=== PATIENT | male | born 1940 | race African-American/Black ===

== ENCOUNTER 2018-12-13 12:56 | Inpatient (IN) ==
[2018-12-13] MEDS ORDERED: LORazepam 2 MG/1 ML VIAL IV STA (13:09)
[2018-12-13 13:36] LABS: Basophils % 0.5 % (0.0-0.8); Eosinophils # 0.2 10*3/uL (0.0-0.87); Eosinophils % 2.8 % (0.00-10.9); Hematocrit 22.6 VOL% (42.0-52.0); Immature Granulocytes % 0.5 %; Immature Granulocytes Absolute 0.03 #; Lymphocytes % 17.1 % (21.2-54.2); Mean Corpuscular Volume 96.2 FL (87-102); Monocytes % 9.7 % (1.7-12.7); Neutrophils % 69.4 % (38.7-73.9); Platelet Count 297 T/CUMM (130-400); Red Blood Count 2.35 MC/CUMM (3.8-5.5); Red Cell Distribution Width 15.6 % (9.3-17.3); White Blood Count 5.8 T/CUMM (4-12)
[2018-12-13 14:01] LABS: Alanine Aminotransferase 15 U/L (16-61); Albumin 3.4 G/DL (3.4-5.0); Alkaline Phosphatase 71 U/L (45-117); Aspartate Amino Transferase 14 U/L (0-37); Bilirubin,Total < 0.39 MG/DL (0.2-1.0); Blood Urea Nitrogen 39 MG/DL (7-18); Calcium 8.4 MG/DL (8.5-10.1); Free T4 (Free Thyroxine) 1.08 NG/DL (0.76-1.46); Glucose 154 MG/DL (74-106); Osmolality,Calculated 281.1 MOS/KG (273-304); Total Protein 6.6 G/DL (6.4-8.3); Troponin I < 0.015 NG/ML (0.00-0.045)
[2018-12-13 15:02] LABS: INR 0.9; PT Patient Result 10.2 SECS; Partial Thromboplastin Time 27.6 SECS (0-40)
[2018-12-13] MEDS ORDERED: traMADol 50 MG TABLET PO PRN (16:22)
[2018-12-13] MEDS ORDERED: ONDANSETRON 4 MG/2 ML VIAL IV PRN (16:51)
[2018-12-13] MEDS ORDERED: DEXTROSE 50% 25 GM/50 ML SYRINGE IV PRN (16:55)
[2018-12-13] MEDS ORDERED: GLUCAGON 1 MG VIAL IM PRN (16:55)
[2018-12-13] MEDS ORDERED: SODIUM CHLORIDE 0.9% 1,000 ML IV PRN (16:55)
[2018-12-13] MEDS ORDERED: metFORMIN 500 MG TABLET PO SCH (17:00)
[2018-12-13] MEDS ORDERED: PANTOPRAZOLE INJ 80 MG in SODIUM CHLORIDE 0.9% 100 ML IV ONE ×2 (18:00→23:30)
[2018-12-13] MEDS: INSULIN REGULAR 100 UNIT/ML SUBCUT SCH (18:05)
[2018-12-13] MEDS: SODIUM CHLORIDE 0.9% 1,000 ML IV SCH (18:16)
[2018-12-13] MEDS: CARVEDILOL 25 MG TABLET PO SCH (20:26)
[2018-12-13] MEDS ORDERED: INSULIN GLARGINE 100 UNIT/ML SUBCUT SCH (21:00)
[2018-12-13] MEDS ORDERED: NIZATIDINE 150 MG PO SCH (21:00)
[2018-12-13 22:48] LABS: Hematocrit 23.9 VOL% (42.0-52.0); Hemoglobin 7.4 GM/DL (14.0-18.0)
[2018-12-14] MEDS: INSULIN REGULAR 100 UNIT/ML SUBCUT SCH ×4 (00:49→17:01)
[2018-12-14] MEDS: PANTOPRAZOLE INJ 200 MG in SODIUM CHLORIDE 0.9% 250 ML IV SCH ×2 (02:18→21:04)
[2018-12-14 07:42] LABS: Basophils % 0.5 % (0.0-0.8); Eosinophils # 0.2 10*3/uL (0.0-0.87); Hematocrit 24.5 VOL% (42.0-52.0); Hemoglobin 7.8 GM/DL (14.0-18.0); Immature Granulocytes % 0.3 %; Immature Granulocytes Absolute 0.02 #; Lymphocytes # 1.1 10*3/uL (1.4-4.0); Lymphocytes % 17.8 % (21.2-54.2); Mean Corpuscular HGB Conc 31.8 GM/DL (32-36); Mean Corpuscular Volume 92.5 FL (87-102); Mean Platelet Volume 8.7 FL (9.6-12.0); Monocytes % 12.2 % (1.7-12.7); Neutrophils % 66.2 % (38.7-73.9); Platelet Count 257 T/CUMM (130-400); Red Blood Count 2.65 MC/CUMM (3.8-5.5); Red Cell Distribution Width 15.8 % (9.3-17.3); White Blood Count 6.1 T/CUMM (4-12)
[2018-12-14 08:05] LABS: Calcium 8.1 MG/DL (8.5-10.1); Risk Ratio 2.47; VLDL CHOLESTEROL 17.6 MG/DL
[2018-12-14] MEDS: EZETIMIBE 10 MG TABLET PO SCH (08:40)
[2018-12-14] MEDS: FERROUS SULFATE 325 MG TABLET PO SCH (08:41)
[2018-12-14] MEDS: CARVEDILOL 25 MG TABLET PO SCH ×2 (08:41→21:05)
[2018-12-14] MEDS: SIMVASTATIN 40 MG TABLET PO SCH (08:41)
[2018-12-14] MEDS: TAMSULOSIN 0.4 MG CAPSULE PO SCH (08:41)
[2018-12-14] MEDS: FLUTICASONE 50 MCG NASAL SPRAY 16 GM BOTTLE BOTH NARES SCH (08:42)
[2018-12-14] MEDS ORDERED: NON-FORMULARY MEDICATION (Olmesartan/Hydrochlorothiazide [Benicar Hct 40-25 Mg Tablet] 1 E PO SCH (09:00)
[2018-12-14] MEDS ORDERED: GLIMEPIRIDE 4 MG TABLET PO SCH (09:00)
[2018-12-14] MEDS ORDERED: ALLOPURINOL 100 MG TABLET PO SCH (09:00)
[2018-12-14] MEDS ORDERED: DEXTROSE 50% 25 GM/50 ML VIAL IV PRN (09:51)
[2018-12-14] MEDS ORDERED: GLUCAGON 1 MG VIAL IM PRN (09:51)
[2018-12-14] MEDS: SODIUM CHLORIDE 0.9% 1,000 ML IV SCH ×2 (14:53→21:05)
[2018-12-15] MEDS: INSULIN REGULAR 100 UNIT/ML SUBCUT SCH ×4 (05:01→17:47)
[2018-12-15 06:19] LABS: Basophils % 0.5 % (0.0-0.8); Eosinophils # 0.3 10*3/uL (0.0-0.87); Hematocrit 24.4 VOL% (42.0-52.0); Hemoglobin 7.6 GM/DL (14.0-18.0); Immature Granulocytes % 0.5 %; Immature Granulocytes Absolute 0.03 #; Lymphocytes # 1.2 10*3/uL (1.4-4.0); Lymphocytes % 18.4 % (21.2-54.2); Mean Corpuscular HGB Conc 31.1 GM/DL (32-36); Mean Corpuscular Volume 94.2 FL (87-102); Mean Platelet Volume 8.9 FL (9.6-12.0); Monocytes % 12.4 % (1.7-12.7); NRBC # 0.02 10*3/uL; Neutrophils % 64.2 % (38.7-73.9); Platelet Count 277 T/CUMM (130-400); Red Blood Count 2.59 MC/CUMM (3.8-5.5); Red Cell Distribution Width 15.9 % (9.3-17.3); White Blood Count 6.3 T/CUMM (4-12)
[2018-12-15 06:34] LABS: Calcium 8.2 MG/DL (8.5-10.1)
[2018-12-15] MEDS ORDERED: LACTATED RINGERS 500 ML IV SCH (08:00)
[2018-12-15] MEDS: EZETIMIBE 10 MG TABLET PO SCH (08:14)
[2018-12-15] MEDS: CARVEDILOL 25 MG TABLET PO SCH ×2 (08:14→21:22)
[2018-12-15] MEDS: SIMVASTATIN 40 MG TABLET PO SCH (08:14)
[2018-12-15] MEDS: TAMSULOSIN 0.4 MG CAPSULE PO SCH (08:14)
[2018-12-15] MEDS: FERROUS SULFATE 325 MG TABLET PO SCH (08:14)
[2018-12-15] MEDS: FLUTICASONE 50 MCG NASAL SPRAY 16 GM BOTTLE BOTH NARES SCH (08:15)
[2018-12-15] MEDS ORDERED: LIDOCAINE 100 MG/5 ML SYRINGE ONE (10:00)
[2018-12-15] MEDS ORDERED: PROPOFOL 200 MG/20 ML VIAL IV ONE (10:00)
[2018-12-15] MEDS: SODIUM CHLORIDE 0.9% 1,000 ML IV SCH (21:22)
[2018-12-16] MEDS: INSULIN REGULAR 100 UNIT/ML SUBCUT SCH ×4 (01:25→18:36)
[2018-12-16 05:01] LABS: Basophils % 0.4 % (0.0-0.8); Eosinophils # 0.2 10*3/uL (0.0-0.87); Eosinophils % 2.6 % (0.00-10.9); Hematocrit 24.2 VOL% (42.0-52.0); Hemoglobin 7.6 GM/DL (14.0-18.0); Immature Granulocytes % 0.4 %; Immature Granulocytes Absolute 0.03 #; Lymphocytes # 1.2 10*3/uL (1.4-4.0); Lymphocytes % 16.9 % (21.2-54.2); Mean Corpuscular HGB Conc 31.4 GM/DL (32-36); Mean Corpuscular Volume 94.5 FL (87-102); Mean Platelet Volume 9.1 FL (9.6-12.0); Monocytes % 11.8 % (1.7-12.7); NRBC # 0.02 10*3/uL; Neutrophils % 67.9 % (38.7-73.9); Platelet Count 283 T/CUMM (130-400); Red Blood Count 2.56 MC/CUMM (3.8-5.5); Red Cell Distribution Width 15.8 % (9.3-17.3); White Blood Count 7.2 T/CUMM (4-12)
[2018-12-16] MEDS: PANTOPRAZOLE INJ 200 MG in SODIUM CHLORIDE 0.9% 250 ML IV SCH (05:06)
[2018-12-16 05:23] LABS: Calcium 8.1 MG/DL (8.5-10.1); Osmolality,Calculated 288.1 MOS/KG (273-304)
[2018-12-16] MEDS ORDERED: SODIUM CHLORIDE 0.9% 1,000 ML IV PRN (07:30)
[2018-12-16] MEDS: FERROUS SULFATE 325 MG TABLET PO SCH (10:20)
[2018-12-16] MEDS: SIMVASTATIN 40 MG TABLET PO SCH (10:21)
[2018-12-16] MEDS: CARVEDILOL 25 MG TABLET PO SCH ×2 (10:21→21:12)
[2018-12-16] MEDS: TAMSULOSIN 0.4 MG CAPSULE PO SCH (10:21)
[2018-12-16] MEDS: FLUTICASONE 50 MCG NASAL SPRAY 16 GM BOTTLE BOTH NARES SCH (10:23)
[2018-12-16] MEDS: EZETIMIBE 10 MG TABLET PO SCH (10:54)
[2018-12-16] MEDS: SODIUM CHLORIDE 0.9% 1,000 ML IV SCH (12:26)
[2018-12-16 19:02] LABS: Hemoglobin 8.9 GM/DL (14.0-18.0)
[2018-12-17] MEDS: INSULIN REGULAR 100 UNIT/ML SUBCUT SCH ×2 (03:03→06:40)
[2018-12-17 04:31] LABS: Basophils % 0.5 % (0.0-0.8); Eosinophils # 0.2 10*3/uL (0.0-0.87); Eosinophils % 2.8 % (0.00-10.9); Hematocrit 29.9 VOL% (42.0-52.0); Hemoglobin 9.5 GM/DL (14.0-18.0); Immature Granulocytes % 0.3 %; Immature Granulocytes Absolute 0.02 #; Lymphocytes # 1.6 10*3/uL (1.4-4.0); Lymphocytes % 21.1 % (21.2-54.2); Mean Corpuscular HGB Conc 31.8 GM/DL (32-36); Mean Corpuscular Volume 90.9 FL (87-102); Monocytes % 10.6 % (1.7-12.7); Neutrophils % 64.7 % (38.7-73.9); Platelet Count 307 T/CUMM (130-400); Red Blood Count 3.29 MC/CUMM (3.8-5.5); Red Cell Distribution Width 17.3 % (9.3-17.3); White Blood Count 7.4 T/CUMM (4-12)
[2018-12-17 04:47] LABS: Calcium 8.3 MG/DL (8.5-10.1); Osmolality,Calculated 286.1 MOS/KG (273-304)
[2018-12-17] MEDS: TAMSULOSIN 0.4 MG CAPSULE PO SCH (08:17)
[2018-12-17] MEDS: EZETIMIBE 10 MG TABLET PO SCH (08:17)
[2018-12-17] MEDS: FLUTICASONE 50 MCG NASAL SPRAY 16 GM BOTTLE BOTH NARES SCH (08:17)
[2018-12-17] MEDS: SIMVASTATIN 40 MG TABLET PO SCH (08:17)
[2018-12-17] MEDS: FERROUS SULFATE 325 MG TABLET PO SCH (08:17)
[2018-12-17] MEDS: CARVEDILOL 25 MG TABLET PO SCH (08:17)
[2018-12-17] MEDS ORDERED: PANTOPRAZOLE 40 MG VIAL IV SCH (09:00)
[2018-12-17 12:26] VITALS: BP 126/53
== END 2018-12-17 13:15 | disposition home or self-care (01) | DRG 378 ==
LOC: EDBD → EDUNIT# → N.ED 12:56 → SUATTDRO 16:51 → N.EDINP 16:51 → N.TELES 17:25
PROVIDERS: ADMIT Phlebology; ATTEND Internal Medicine

== ENCOUNTER 2019-02-16 05:43 | Inpatient (IN) ==
[2019-02-08 14:03] LABS: Basophils # 0.1 10*3/uL (0.0-0.2); Basophils % 0.7 % (0.0-0.8); Eosinophils # 0.3 10*3/uL (0.0-0.87); Eosinophils % 3.5 % (0.00-10.9); Hematocrit 38.8 VOL% (42.0-52.0); Hemoglobin 11.9 GM/DL (14.0-18.0); Immature Granulocytes % 0.3 %; Immature Granulocytes Absolute 0.02 #; Lymphocytes # 1.4 10*3/uL (1.4-4.0); Lymphocytes % 18.5 % (21.2-54.2); Mean Corpuscular HGB Conc 30.7 GM/DL (32-36); Mean Corpuscular Volume 92.6 FL (87-102); Monocytes % 9.8 % (1.7-12.7); Neutrophils % 67.2 % (38.7-73.9); Platelet Count 267 T/CUMM (130-400); Red Blood Count 4.19 MC/CUMM (3.8-5.5); Red Cell Distribution Width 15.6 % (9.3-17.3); White Blood Count 7.4 T/CUMM (4-12)
[2019-02-08 14:23] LABS: Alanine Aminotransferase 18 U/L (16-61); Albumin 3.7 G/DL (3.4-5.0); Alkaline Phosphatase 102 U/L (45-117); Aspartate Amino Transferase 16 U/L (0-37); Bilirubin,Total < 0.39 MG/DL (0.2-1.0); Blood Urea Nitrogen 22 MG/DL (7-18); Calcium 9.1 MG/DL (8.5-10.1); Glucose 137 MG/DL (74-106); Osmolality,Calculated 283.4 MOS/KG (273-304); Total Protein 7.7 G/DL (6.4-8.3)
[2019-02-16] MEDS ORDERED: ceFAZolin 1,000 MG in SYRINGE 1 EACH IV ONE (06:00)
[2019-02-16] MEDS ORDERED: FAMOTIDINE 20 MG TABLET PO ONE (06:34)
[2019-02-16] MEDS ORDERED: LIDOCAINE 2% TOP JELLY 20 ML VIAL INTRAURETH ONE (06:44)
[2019-02-16] MEDS ORDERED: HEPARIN 5,000 UNIT/1 ML VIAL ONE (06:44)
[2019-02-16] MEDS ORDERED: VANCOMYCIN 500 MG VIAL ONE (06:44)
[2019-02-16] MEDS ORDERED: TISSUE ADHESIVE 1 EACH APPLICATOR TOP ONE (06:44)
[2019-02-16] MEDS ORDERED: LIDOCAINE 1% 20 ML VIAL ONE (06:44)
[2019-02-16] MEDS ORDERED: THROMBIN TOPICAL (RECOMBINANT) 5,000 UNIT VIAL TOP ONE (06:44)
[2019-02-16] MEDS ORDERED: HEPARIN/NACL 0.9% 2 UNITS/ML 500 ML IV ONE ×2 (06:46→10:27)
[2019-02-16] MEDS: LACTATED RINGERS 1,000 ML IV SCH ×5 (06:50→19:03)
[2019-02-16] MEDS ORDERED: FAMOTIDINE 20 MG TABLET ONE (06:53)
[2019-02-16] MEDS ORDERED: NITROGLYCERIN DRIP 50 MG/250 ML BOTTLE IV ONE ×2 (06:58→10:26)
[2019-02-16] MEDS ORDERED: PHENYLEPHRINE 10 MG/1 ML VIAL IV ONE (06:58)
[2019-02-16] MEDS ORDERED: ceFAZolin 1,000 MG VIAL ONE (06:59)
[2019-02-16] MEDS ORDERED: HEPARIN/NACL 0.9% 2 UNITS/ML 3,000 ML IV ONE (07:34)
[2019-02-16] MEDS ORDERED: HYDROmorphone 2 MG/1 ML VIAL IV PRN (10:03)
[2019-02-16] MEDS ORDERED: ONDANSETRON 4 MG/2 ML VIAL IV PRN (10:03)
[2019-02-16] MEDS ORDERED: traMADol 50 MG TABLET PO PRN (10:07)
[2019-02-16] MEDS ORDERED: FLUTICASONE 50 MCG NASAL SPRAY 16 GM BOTTLE BOTH NARES PRN (10:07)
[2019-02-16] MEDS ORDERED: PROPOFOL 200 MG/20 ML VIAL IV ONE (10:25)
[2019-02-16] MEDS ORDERED: SODIUM CHLORIDE 0.9% 1,000 ML IV ONE (10:26)
[2019-02-16] MEDS ORDERED: ROCURONIUM 100 MG/10 ML VIAL IV ONE (10:26)
[2019-02-16] MEDS ORDERED: ETOMIDATE 40 MG/20 ML VIAL IV ONE (10:26)
[2019-02-16] MEDS ORDERED: PHENYLEPHRINE 1 MG/10 ML SYRINGE IV ONE (10:26)
[2019-02-16] MEDS ORDERED: PHENYLEPHRINE DRIP 20 MG/250 ML PREMIX IV ONE (10:26)
[2019-02-16] MEDS ORDERED: SEVOFLURANE 1 UNIT/15 MINUTE INH ONE (10:26)
[2019-02-16] MEDS ORDERED: ePHEDrine 50 MG/ML AMP ONE (10:28)
[2019-02-16] MEDS ORDERED: fentaNYL 100 MCG/2 ML VIAL ONE (10:28)
[2019-02-16] MEDS ORDERED: EPINEPHrine 1 MG/ML VIAL ONE (10:28)
[2019-02-16] MEDS ORDERED: MIDAZOLAM 2 MG/2 ML VIAL ONE (10:28)
[2019-02-16] MEDS ORDERED: GLYCOPYRROLATE 0.4 MG/2 ML VIAL ONE (10:28)
[2019-02-16] MEDS ORDERED: NEOSTIGMINE 10 MG/10 ML VIAL ONE (10:29)
[2019-02-16] MEDS ORDERED: SUCCINYLCHOLINE 200 MG/10 ML VIAL ONE (10:29)
[2019-02-16] MEDS: INSULIN LISPRO 100 UNIT/ML SUBCUT SCH ×2 (15:42→20:41)
[2019-02-16] MEDS ORDERED: TAMSULOSIN 0.4 MG CAPSULE PO SCH (19:00)
[2019-02-16] MEDS: CARVEDILOL 25 MG TABLET PO SCH (20:52)
[2019-02-16] MEDS ORDERED: INSULIN GLARGINE 100 UNIT/ML SUBCUT SCH (21:00)
[2019-02-16] MEDS ORDERED: FAMOTIDINE 20 MG TABLET PO SCH (21:00)
[2019-02-16] MEDS ORDERED: SIMVASTATIN 40 MG TABLET PO SCH (21:00)
[2019-02-17 05:48] LABS: Hematocrit 33.5 VOL% (42.0-52.0); Hemoglobin 10.7 GM/DL (14.0-18.0)
[2019-02-17 06:14] LABS: Calcium 8.4 MG/DL (8.5-10.1); Osmolality,Calculated 280.7 MOS/KG (273-304)
[2019-02-17] MEDS: LACTATED RINGERS 1,000 ML IV SCH ×2 (06:26→10:23)
[2019-02-17] MEDS ORDERED: GLIMEPIRIDE 4 MG TABLET PO SCH (08:00)
[2019-02-17] MEDS: INSULIN LISPRO 100 UNIT/ML SUBCUT SCH ×2 (08:13→12:02)
[2019-02-17] MEDS ORDERED: hydroCHLOROthiazide 12.5 MG CAPSULE PO SCH (09:00)
[2019-02-17] MEDS ORDERED: ASPIRIN EC 81 MG TABLET PO SCH (09:00)
[2019-02-17] MEDS ORDERED: EZETIMIBE 10 MG TABLET PO SCH (09:00)
[2019-02-17] MEDS ORDERED: FERROUS SULFATE 325 MG TABLET PO SCH (09:00)
[2019-02-17] MEDS ORDERED: OLMESARTAN 20 MG TABLET PO SCH (09:00)
[2019-02-17] MEDS ORDERED: ALLOPURINOL 100 MG TABLET PO SCH (09:00)
[2019-02-17] MEDS: CARVEDILOL 25 MG TABLET PO SCH (09:29)
[2019-02-17 12:00] VITALS: BP 151/63
== END 2019-02-17 15:00 | disposition home or self-care (01) | DRG 269 ==
LOC: N.SDSINP 05:43 → N.PREADM 05:43 → EDSTATUS 07:00 → N.SDSINP 10:03 → N.3E 11:51
PROVIDERS: ADMIT Surgery; ATTEND Surgery
PROC: IRERAAA (2019-02-16 08:06)

== ENCOUNTER 2022-03-14 05:36 | Inpatient (IN) ==
[2022-03-12 11:15] LABS: Basophils # 0.1 10*3/uL (0.0-0.2); Basophils % 0.7 % (0.0-0.8); Eosinophils # 0.2 10*3/uL (0.0-0.87); Eosinophils % 2.5 % (0.00-10.9); Hematocrit 39.8 VOL% (42.0-52.0); Immature Granulocytes % 0.3 %; Immature Granulocytes Absolute 0.02 #; Lymphocytes # 1.4 10*3/uL (1.4-4.0); Mean Corpuscular HGB Conc 32.7 GM/DL (32-36); Mean Corpuscular Volume 96.6 FL (87-102); Mean Platelet Volume 9.8 FL (9.6-12.0); Monocytes # 0.7 10*3/uL (0.11-0.8); Monocytes % 9.5 % (1.7-12.7); Platelet Count 265 T/CUMM (130-400); Red Blood Count 4.12 MC/CUMM (3.8-5.5); Red Cell Distribution Width 14.2 % (9.3-17.3); White Blood Count 6.9 T/CUMM (4-12)
[2022-03-12 11:25] LABS: PT Patient Result 10.7 SECS (10.1-12.1)
[2022-03-12 11:35] LABS: Calcium 9.1 MG/DL (8.5-10.1); Osmolality,Calculated 286.7 MOS/KG (273-304); Potassium 4.9 MMOL/L (3.5-5.1)
[2022-03-14] MEDS ORDERED: SODIUM CHLORIDE 0.9% 100 ML IV ONE (07:48)
[2022-03-14] MEDS ORDERED: ceFAZolin 1,000 MG VIAL ONE (07:48)
[2022-03-14] MEDS ORDERED: FAMOTIDINE 20 MG TABLET PO ONE (08:22)
[2022-03-14] MEDS ORDERED: DIAZEPAM 5 MG TABLET PO ONE ×2 (08:24→08:30)
[2022-03-14] MEDS ORDERED: LACTATED RINGERS 1,000 ML IV SCH (08:30)
[2022-03-14] MEDS ORDERED: MIDAZOLAM 2 MG/2 ML VIAL IV ONE (09:30)
[2022-03-14] MEDS ORDERED: fentaNYL 100 MCG/2 ML VIAL IV ONE (09:30)
[2022-03-14] MEDS ORDERED: ceFAZolin 2,000 MG/50 ML DUPLEX IV ONE (10:26)
[2022-03-14] MEDS ORDERED: fentaNYL 100 MCG/2 ML VIAL ONE (12:05)
[2022-03-14] MEDS ORDERED: LIDOCAINE 2% 5 ML VIAL ONE (12:05)
[2022-03-14] MEDS ORDERED: SUCCINYLCHOLINE 200 MG/10 ML VIAL ONE ×2 (12:05→12:12)
[2022-03-14] MEDS ORDERED: ONDANSETRON 4 MG/2 ML VIAL ONE (12:05)
[2022-03-14] MEDS ORDERED: propofoL 200 MG/20 ML VIAL IV ONE (12:05)
[2022-03-14] MEDS ORDERED: ROCURONIUM 50 MG/5 ML VIAL IV ONE ×2 (12:05→14:12)
[2022-03-14] MEDS ORDERED: TISSUE ADHESIVE 1 EACH APPLICATOR TOP ONE (12:35)
[2022-03-14] MEDS ORDERED: VANCOMYCIN 500 MG VIAL ONE (12:36)
[2022-03-14] MEDS ORDERED: HEPARIN 5,000 UNIT/1 ML VIAL ONE (12:36)
[2022-03-14] MEDS ORDERED: ALBUMIN 5% 25.0 GM/500 ML VIAL IV ONE (13:51)
[2022-03-14] MEDS ORDERED: PHENYLEPHRINE 1 MG/10 ML SYRINGE IV ONE (14:12)
[2022-03-14] MEDS ORDERED: CALCIUM CHLORIDE 1,000 MG/10 ML VIAL IV ONE (14:12)
[2022-03-14] MEDS ORDERED: LACTATED RINGERS 1,000 ML IV ONE (14:12)
[2022-03-14] MEDS ORDERED: HEPARIN 10,000 UNIT/10 ML VIAL ONE (14:33)
[2022-03-14] MEDS ORDERED: NEOSTIGMINE 10 MG/10 ML VIAL ONE (14:54)
[2022-03-14] MEDS ORDERED: GLYCOPYRROLATE 0.4 MG/2 ML VIAL ONE (14:54)
[2022-03-14] MEDS ORDERED: HYDROmorphone 1 MG/1 ML SYRINGE IV PRN (15:10)
[2022-03-14] MEDS ORDERED: ONDANSETRON 4 MG/2 ML VIAL IV PRN (15:10)
[2022-03-14] MEDS ORDERED: FLUTICASONE 50 MCG NASAL SPRAY 16 GM BOTTLE BOTH NARES PRN (15:13)
[2022-03-14] MEDS: SODIUM CHLORIDE 0.45% 1,000 ML IV SCH (18:53)
[2022-03-14] MEDS ORDERED: INSULIN NPH/REGULAR 70/30 100 UNIT/ML SUBCUT SCH (21:00)
[2022-03-14] MEDS ORDERED: SIMVASTATIN 40 MG TABLET PO SCH (21:00)
[2022-03-14] MEDS ORDERED: carvediloL 25 MG TABLET PO SCH (21:00)
[2022-03-14] MEDS ORDERED: EZETIMIBE 10 MG TABLET PO SCH (21:00)
[2022-03-15] MEDS: LACTATED RINGERS 1,000 ML IV SCH ×3 (00:34→09:52)
[2022-03-15 06:00] LABS: Basophils % 0.3 % (0.0-0.8); Eosinophils # 0.1 10*3/uL (0.0-0.87); Eosinophils % 1.1 % (0.00-10.9); Hemoglobin 11.6 GM/DL (14.0-18.0); Immature Granulocytes % 0.2 %; Immature Granulocytes Absolute 0.02 #; Lymphocytes % 11.4 % (21.2-54.2); Mean Corpuscular HGB Conc 32.2 GM/DL (32-36); Mean Corpuscular Volume 95.7 FL (87-102); Mean Platelet Volume 9.5 FL (9.6-12.0); Monocytes # 0.9 10*3/uL (0.11-0.8); Monocytes % 10.5 % (1.7-12.7); Neutrophils % 76.5 % (38.7-73.9); Platelet Count 200 T/CUMM (130-400); Red Blood Count 3.76 MC/CUMM (3.8-5.5); Red Cell Distribution Width 14.3 % (9.3-17.3); White Blood Count 8.9 T/CUMM (4-12)
[2022-03-15] MEDS ORDERED: PANTOPRAZOLE 40 MG TABLET PO SCH (06:00)
[2022-03-15 06:28] LABS: Calcium 8.9 MG/DL (8.5-10.1); Potassium 4.4 MMOL/L (3.5-5.1)
[2022-03-15 07:29] VITALS: BP 159/71
[2022-03-15] MEDS ORDERED: INSULIN NPH/REGULAR 70/30 100 UNIT/ML SUBCUT SCH (08:00)
[2022-03-15] MEDS ORDERED: carvediloL 25 MG TABLET PO SCH (08:00)
[2022-03-15] MEDS ORDERED: CLOPIDOGREL 75 MG TABLET PO SCH (09:00)
[2022-03-15] MEDS ORDERED: ASPIRIN EC 81 MG TABLET PO SCH (09:00)
[2022-03-15] MEDS ORDERED: ASPIRIN CHEW 81 MG TABLET PO SCH (09:00)
[2022-03-15] MEDS ORDERED: hydroCHLOROthiazide 12.5 MG CAPSULE PO SCH (09:00)
[2022-03-15] MEDS ORDERED: FERROUS SULFATE 325 MG TABLET PO SCH (09:00)
[2022-03-15] MEDS ORDERED: OLMESARTAN 20 MG TABLET PO SCH (09:00)
[2022-03-15] MEDS ORDERED: allopurinoL 100 MG TABLET PO SCH (09:00)
[2022-03-15] MEDS ORDERED: ENOXAPARIN 40 MG/0.4 ML SYRINGE SUBCUT SCH (09:00)
[2022-03-15] MEDS: SODIUM CHLORIDE 0.45% 1,000 ML IV SCH (09:52)
== END 2022-03-15 10:40 | disposition home or self-care (01) | DRG 271 ==
LOC: N.SDSINP 05:36 → N.RAD 05:36 → N.SDSINP 05:38 → N.3E 15:10
PROVIDERS: ADMIT Surgery; ATTEND Surgery